=== PATIENT | male | born 1980 | race Caucasian/White ===

== ENCOUNTER 2018-06-13 19:34 | Emergency (ER) | payer OTHER ==
[2018-06-13] MEDS: AUGMENTIN 875 MG TAB PO (20:06)
== END 2018-06-13 20:19 | disposition home or self-care (01) ==
LOC: M ED 19:34
DX: S51.852A Open bite of left forearm, initial encounter (principal); S30.811A Abrasion of abdominal wall, initial encounter; W54.0XXA Bitten by dog, initial encounter; Y92.89 Other specified places as the place of occurrence of the external cause; M19.90 Unspecified osteoarthritis, unspecified site; F17.200 Nicotine dependence, unspecified, uncomplicated; Z79.899 Other long term (current) drug therapy
CPT/HCPCS: 99284

== ENCOUNTER → 2020-11-05 | Outpatient (CLI) | payer SELFPAY ==
[~2020-11-05] MED LIST: AUGM875T28 PO; MELO15TA28 PO
== END ==
LOC: M LABSMTC 12:39
PROVIDERS: ATTEND Pediatrics
DX: Z20.828 Contact with and (suspected) exposure to other viral communicable diseases (principal)

== ENCOUNTER → 2020-12-27 | Outpatient (REF) | payer OTHER | LOC: M SMT 13:29 | PROVIDERS: ATTEND Urology | DX: Z30.2 Encounter for sterilization (principal) ==

== ENCOUNTER → 2022-10-15 | Outpatient (REF) | payer OTHER | LOC: M LAB REF 12:25 | PROVIDERS: ATTEND Internal Medicine | DX: Z11.9 Encounter for screening for infectious and parasitic diseases, unspecified (principal) ==